=== PATIENT | male | born 1945 | race Caucasian/White ===

== ENCOUNTER → 2017-11-12 08:55 | Outpatient (CLI) | payer MEDICARE, OTHER ==
[2012-11-24 17:53] VITALS: BMI 28.2
== END | disposition home or self-care (01) ==
LOC: D.CT 08:55
DX: R91.8 Other nonspecific abnormal finding of lung field (principal)

== ENCOUNTER → 2017-11-21 11:35 | Outpatient (CLI) | payer MEDICARE, OTHER ==
[2012-11-24 17:53] VITALS: BMI 28.2
== END | disposition home or self-care (01) ==
LOC: D.CT 11:30
DX: I71.4 Abdominal aortic aneurysm, without rupture (principal); R10.9 Unspecified abdominal pain